=== PATIENT | male | born 1995 | race African-American/Black ===

== ENCOUNTER 2022-12-01 11:49 | Inpatient (IN) | payer BC ==
[2022-12-01] VITALS (7 sets, daily range): BP systolic 151–153; BP diastolic 82–93
[~2022-12-01] VITALS: Ht 185.4 cm; Wt 80.3 kg
[2022-12-01] MEDS ORDERED: ACETAMINOPHEN 325 MG TAB PO PRN (14:45)
[2022-12-01] MEDS ORDERED: SIMETHICONE 80 MG CHEW PO PRN (14:45)
[2022-12-01] MEDS ORDERED: MELATONIN 5 MG TABLET PO PRN (14:45)
[2022-12-01] MEDS ORDERED: BENZONATATE 100 MG CAP PO PRN (14:45)
[2022-12-01] MEDS ORDERED: HYDRALAZINE HCL 20 MG/ML VIAL IV PRN (14:45)
[2022-12-01] MEDS ORDERED: POTASSIUM CHLORIDE 20 MEQ TAB CR PO PRN (14:45)
[2022-12-01] MEDS ORDERED: DEXTROSE 50% SYRINGE 50 ML IV PRN (14:45)
[2022-12-01] MEDS ORDERED: DIPHENHYDRAMINE HCL 25 MG CAP PO PRN (14:45)
[2022-12-01] MEDS ORDERED: LIDOCAINE 4% PATCH TP PRN (14:45)
[2022-12-01] MEDS ORDERED: ALBUTEROL/IPRATROPIUM 3 ML NEB NEB PRN (14:45)
[2022-12-01] MEDS ORDERED: DOCUSATE SODIUM 100 MG CAP PO PRN (14:45)
[2022-12-01] MEDS: DEXTROSE 5%/LACTATED RINGERS 1,000 ML IV SCH ×3 (14:50→22:45)
[2022-12-01 15:07] LABS: BASOPHILS % 0.1 % (0.0-1.0); EOSINOPHILS % 0.4 % (0.0-6.0); HEMOGLOBIN 14.8 g/dL (14.0-18.0); LYMPHOCYTES # (AUTO) 0.7 (1.0-3.2); LYMPHOCYTES % 7.8 % (18.0-39.1); MEAN CORPUSCULAR HGB CONC 33.6 g/dL (31-35); MEAN CORPUSCULAR VOLUME 89.1 fL (81-99); MONOCYTES # (AUTO) 0.5 (0.2-0.8); MONOCYTES % 5.9 % (4.4-11.3); NEUTROPHILS # (AUTO) 7.7 (2.1-6.9); NEUTROPHILS % 85.6 % (38.7-80.0); PLATELET COUNT 181 x10e3/uL (140-360); RED BLOOD COUNT 4.94 x10e6/uL (4.3-5.7); RED CELL DISTRIBUTION WIDTH 12.8 % (11.7-14.4)
[2022-12-01] MEDS: Morphine 2mg Syringe 2 MG/ML SYR IV PRN ×3 (15:27→22:44)
[2022-12-01] MEDS: ONDANSETRON HCL INJ 2MG/ML 2ML 2 MG/ML VIAL IV PRN ×2 (15:27→18:55)
[2022-12-01 15:30] LABS: ALBUMIN 4.3 g/dL (3.5-5.0); ALBUMIN/GLOBULIN RATIO 1.7 (0.8-2.0); ANION GAP 18.9 mmol/L (8-16); CREATININE, SERUM 0.93 mg/dL (0.72-1.25); POTASSIUM 3.9 mmol/L (3.5-5.1)
[2022-12-01] MEDS ORDERED: IPRATROPIUM BROMIDE 0.02% 2.5 ML NEB NEB PRN (15:30)
[2022-12-01] MEDS ORDERED: ALBUTEROL SULF 0.083% NEB SOLN 3 ML NEB NEB PRN (15:30)
[2022-12-01] MEDS ORDERED: DEXTROSE 50% SYRINGE 50 ML IV STA (15:57)
[2022-12-01 16:02] LABS: CHOL/HDL RATIO 3.1 (3.9-4.7); CHOLESTEROL 191 MD/DL (0-199); HDL CHOLESTEROL 62 MG/DL (40-60); LDL CHOLESTEROL 103 MG/DL (60-130); LIPASE 1184 U/L (8-78); TRIGLYCERIDES 128 MG/DL (0-149)
[2022-12-01] MEDS: ENOXAPARIN SOD INJ 40 MG/0.4 ML SYR SC SCH (17:03)
[2022-12-01 17:32] LABS: AMPHETAMINES SCREEN,URINE NEGATIVE (NEGATIVE); BENZODIAZEPINES SCREEN,URINE NEGATIVE (NEGATIVE); PHENCYCLIDINE SCREEN,URINE NEGATIVE (NEGATIVE)
[2022-12-02] VITALS (8 sets, daily range): BP systolic 132–148; BP diastolic 84–98
[2022-12-02] MEDS: DEXTROSE 5%/LACTATED RINGERS 1,000 ML IV SCH ×4 (03:31→19:40)
[2022-12-02] MEDS: Morphine 2mg Syringe 2 MG/ML SYR IV PRN ×4 (03:37→19:41)
[2022-12-02] MEDS: ONDANSETRON HCL INJ 2MG/ML 2ML 2 MG/ML VIAL IV PRN (03:38)
[2022-12-02 06:03] LABS: BASOPHILS % 0.1 % (0.0-1.0); EOSINOPHILS # (AUTO) 0.1 (0.0-0.4); EOSINOPHILS % 0.8 % (0.0-6.0); HEMATOCRIT 39.6 % (38.2-49.6); HEMOGLOBIN 13.6 g/dL (14.0-18.0); MEAN CORPUSCULAR HEMOGLOBIN 29.5 pg (28-32); MEAN CORPUSCULAR HGB CONC 34.3 g/dL (31-35); MEAN CORPUSCULAR VOLUME 85.9 fL (81-99); MONOCYTES # (AUTO) 0.8 (0.2-0.8); MONOCYTES % 8.4 % (4.4-11.3); NEUTROPHILS # (AUTO) 8.1 (2.1-6.9); NEUTROPHILS % 80.3 % (38.7-80.0); PLATELET COUNT 159 x10e3/uL (140-360); RED BLOOD COUNT 4.61 x10e6/uL (4.3-5.7); RED CELL DISTRIBUTION WIDTH 12.3 % (11.7-14.4)
[2022-12-02 06:23] LABS: ANION GAP 11.6 mmol/L (8-16); CALCIUM 8.5 mg/dL (8.4-10.2); CHOL/HDL RATIO 3.2 (3.9-4.7); CREATININE, SERUM 0.88 mg/dL (0.72-1.25); MAGNESIUM 1.6 MG/DL (1.3-2.1); PHOSPHORUS 1.4 MG/DL (2.3-4.7); POTASSIUM 3.6 mmol/L (3.5-5.1)
[2022-12-02 06:51] LABS: THYROID STIMULATING HORMONE 1.102 uIU/mL (0.350-4.940)
[2022-12-02] MEDS: PANTOPRAZOLE SOD 40 MG TABEC PO SCH (07:30)
[2022-12-02] MEDS: ENOXAPARIN SOD INJ 40 MG/0.4 ML SYR SC SCH (17:05)
[2022-12-03] MEDS: HYDROCODONE/APAP 5MG-325MG TAB PO PRN ×2 (00:26→09:11)
[2022-12-03] MEDS: DEXTROSE 5%/LACTATED RINGERS 1,000 ML IV SCH ×3 (00:27→09:11)
[2022-12-03 01:25] VITALS: BP 140/94
[2022-12-03 05:51] VITALS: BP 145/95
[2022-12-03] MEDS: PANTOPRAZOLE SOD 40 MG TABEC PO SCH (07:30)
[2022-12-03 08:37] VITALS: BP 131/90
[2022-12-03 09:10] VITALS: BP 131/90
[2022-12-03 12:24] VITALS: BP 133/81
[2022-12-03 12:49] LABS: ANION GAP 10.2 mmol/L (8-16); BLOOD UREA NITROGEN < 5 mg/dL (7-26); CALCIUM 8.6 mg/dL (8.4-10.2); CARBON DIOXIDE 30 mmol/L (22-29); CHLORIDE 101 mmol/L (98-107); CREATININE, SERUM 0.96 mg/dL (0.72-1.25); GLUCOSE 135 mg/dL (74-118); LIPASE 165 U/L (8-78); PHOSPHORUS 1.7 MG/DL (2.3-4.7); POTASSIUM 3.2 mmol/L (3.5-5.1); SODIUM 138 mmol/L (136-145)
[2022-12-03 12:52] LABS: BUN/CREATININE RATIO 5 (6-25)
[2022-12-03] MEDS ORDERED: POTASSIUM PHOSPHATE 15 MM in SODIUM CHLORIDE 0.9% 250ML 250 ML IV ONE (14:30)
[2022-12-03 16:55] VITALS: BP 131/94
[2022-12-03] MEDS: ENOXAPARIN SOD INJ 40 MG/0.4 ML SYR SC SCH (17:00)
== END 2022-12-03 20:40 | disposition home or self-care (01) | DRG 440 ==
LOC: MED/SURG2 12:38
PROVIDERS: ADMIT Internal Medicine; ATTEND Internal Medicine
DX: K85.20 Alcohol induced acute pancreatitis without necrosis or infection (principal); E16.2 Hypoglycemia, unspecified; F19.10 Other psychoactive substance abuse, uncomplicated; F10.10 Alcohol abuse, uncomplicated; F17.200 Nicotine dependence, unspecified, uncomplicated; Z20.822 Contact with and (suspected) exposure to COVID-19
CPT/HCPCS: 36415; 80048; 80053; 80061; 80307; 80320; 82948; 83036; 83690; 83735; 84100; 84443; 85025; 94799; 96361; J1650; J2270; J2405; J7050; J7799